=== PATIENT | male | born 1995 | race Caucasian/White ===

== ENCOUNTER 2017-05-17 08:36 | Emergency (ER) | payer OTHER | END 2017-05-17 10:05 | disposition home or self-care (01) | LOC: M ED 08:36 | DX: S53.441A Ulnar collateral ligament sprain of right elbow, initial encounter (principal); W01.198A Fall on same level from slipping, tripping and stumbling with subsequent striking against other object, initial encounter; Y92.139 Unspecified place military base as the place of occurrence of the external cause; Y93.75 Activity, martial arts; Y99.1 Military activity | CPT/HCPCS: 73080 ==